=== PATIENT | female | born 1925 | race Caucasian/White ===

== ENCOUNTER 2017-02-20 15:45 | Emergency (ER) | payer MEDICARE, BC ==
[~2017-02-20 15:45] MED LIST: CALTRA600D PO; CENTRUM TAB1 TAB PO; PRILOSEC40 MG PO; TESS PO; TRANDAT100 PO
[2017-03-07] MEDS ORDERED: NORV5 PO (15:12)
[2017-03-07] MEDS ORDERED: LIPITOR40 PO (15:13)
[2017-03-07] MEDS ORDERED: COZAAR100 MG PO (15:13)
[2017-03-07] MEDS ORDERED: METHOC500B PO (15:14)
[2017-03-07] MEDS ORDERED: ULTRAM50 PO (15:17)
== END 2017-02-20 18:18 | disposition home or self-care (01) ==
LOC: ER 15:45
DX: S39.92XA Unspecified injury of lower back, initial encounter (principal); I10 Essential (primary) hypertension; K21.9 Gastro-esophageal reflux disease without esophagitis; Z88.0 Allergy status to penicillin; Z91.040 Latex allergy status; Z91.013 Allergy to seafood; Z79.899 Other long term (current) drug therapy; W19.XXXA Unspecified fall, initial encounter
CPT/HCPCS: 72100; 96372; 99284; A9270-GY; J2360

== ENCOUNTER 2017-03-08 12:00 | Day surgery (SDC) | payer MEDICARE, OTHER, BC ==
--- NOTE | ~2017-03-08 | OP ---
Record Of Operation [facility] [address] [place]. [address] NAME: ANICETO OLIVA : [birth year] [place] [facility] [place] [id number] AGE: 89 ADM/REG DATE : 03/08/17 MR#: [id number] REPORT SERV DATE: 03/08/17 DICTATED BY: DAVID DORADO DATE: 03/08/17 REPORT STATUS : Draft TRANSCRIBED BY: MODL DATE: 03/08/17 DATE OF PROCEDURE: 03/08/2017 PREOPERATIVE DIAGNOSIS: Acute T10 and L2 vertebral compression fracture. POSTOPERATIVE DIAGNOSIS: Acute T10 and L2 vertebral compression fracture. PROCEDURE: T10 and L2 kyphoplasty. T10 vertebral body biopsy. SURGEON: David Dorado DO. ANESTHESIA: General. ESTIMATED BLOOD LOSS: 5 mL. COMPLICATIONS: None. INDICATIONS: The patient is a pleasant, 89-year-old with intractable pain and gait disturbance, failed conservative treatment, and after discussion of risks and benefits, elected to undergo surgical intervention. She did have an MRI evidence of acute compression fractures at both levels. PROCEDURE IN DETAIL: I identified the patient in the holding area. Consent was obtained. Went to the operating room. Underwent general anesthesia with endotracheal intubation. Prepped and draped in the usual sterile fashion. Operative safety pause was performed, then we proceeded with surgery. AP and lateral fluoroscopic images were used to identify the pedicles bilaterally at T10 and L2. Small incisions were made. Jamshidi needles were placed through the pedicles into the vertebral bodies at T10 and L2 bilaterally under fluoroscopic guidance. A core biopsy was taken at T10, sent for pathologic analysis. Kyphon balloons were inserted into each of the four pedicles under fluoroscopic guidance, inflated and then deflated. Kyphon cement was mixed and then slowly injected under fluoroscopic guidance into the T10 and L2 pedicles bilaterally. Jamshidi needles were removed. Final AP and lateral images were obtained with fluoroscopy to verify good placement of cement. Irrigation was performed. Sterile dressings were applied. The patient was awoken and extubated, taken to the recovery room in stable condition. FINDINGS: T10 and L2 acute compression fracture. HÉCTOR/PAZ David Dorado DO / [id number] Record Of Operation [address] [place] [address] NAME: ANICETO OLIVA : [birth year] [place] [facility] [place] [id number] AGE: 89 ADM/REG DATE : 03/08/17 MR#: [id number] REPORT SERV DATE: 03/08/17 DICTATED BY: DAVID DORADO DATE: 03/08/17 REPORT STATUS : Draft TRANSCRIBED BY: MODL DATE: 03/08/17 CC: DO John Crystal M.D.
[~2017-03-08 12:00] MED LIST changes: +COZAAR100 MG PO; +LIPITOR40 PO; +METHOC500B PO; +NORV5 PO; +ULTRAM50 PO
[2017-03-08 12:43] LABS: HEMATOCRIT 38.2 % (36.0-48.0); HEMOGLOBIN 13.4 g/dL (12.0-16.0)
[2017-03-08 12:51] LABS: BUN (BLOOD UREA NITROGEN) 11 MG/DL (6-23); CALCIUM, SERUM 9.3 MG/DL (8.5-10.4); CHLORIDE, SERUM 102 MMOL/L (96-112); CO2 (CARBON DIOXIDE) 26 MMOL/L (24-34); CREATININE 0.73 MG/DL (0.55-1.02); GFR AFRICAN AMERICAN 85 ML/MIN (>=60); GFR NON AFRICAN AMERICAN 73 ML/MIN (>=60); GLUCOSE, SERUM 96 MG/DL (60-99); POTASSIUM, SERUM 4.3 MMOL/L (3.5-5.3); SODIUM, SERUM 135 MMOL/L (135-148)
== END 2017-03-08 18:04 | disposition home or self-care (01) ==
LOC: SDC 12:00
PROVIDERS: Orthopaedic Surgery
PROC: 0PU43JZ Supplement Thoracic Vertebra with Synthetic Substitute, Percutaneous Approach (ICD-10-PCS; 2017-03-08)
PROC: 0PB43ZX Excision of Thoracic Vertebra, Percutaneous Approach, Diagnostic (ICD-10-PCS; 2017-03-08)
PROC: 0PS43ZZ Reposition Thoracic Vertebra, Percutaneous Approach (ICD-10-PCS; principal; 2017-03-08 13:45)
DX: M48.55XA Collapsed vertebra, not elsewhere classified, thoracolumbar region, initial encounter for fracture (principal); E78.00 Pure hypercholesterolemia, unspecified; I10 Essential (primary) hypertension; K21.9 Gastro-esophageal reflux disease without esophagitis; M19.90 Unspecified osteoarthritis, unspecified site; I25.2 Old myocardial infarction; Z88.0 Allergy status to penicillin; Z88.8 Allergy status to other drugs, medicaments and biological substances; Z87.891 Personal history of nicotine dependence; Z86.73 Personal history of transient ischemic attack (TIA), and cerebral infarction without residual deficits; Z91.040 Latex allergy status; Z96.651 Presence of right artificial knee joint; Z98.890 Other specified postprocedural states
CPT/HCPCS: 80048; 85014; 85018; 88307; 88311; 93005; A9270-GY; C1726; J0690; J2405; J2710; J3010; Q9967